=== PATIENT | female | born 1960 | race African-American/Black ===

== ENCOUNTER → 2018-02-05 | Outpatient (CLI) | payer BC ==
[~2018-02-05] MED LIST: ALBU2.5V8 INH; PRED20TA PO; TRAM50TA PO
--- NOTE | 2018-02-06 09:10 | RAD ---
DATE: 02/05/2018 EXAM: DIGITAL SCREEN BILAT W/CAD HISTORY: Routine screening COMPARISON: 02/23/2014 This study was interpreted with the benefit of Computerized Aided Detection (CAD). Breast Density: FATTY The breast parenchyma is primarily fatty replaced. Breast parenchyma level density A. FINDINGS: No new or enlarging breast densities are seen. No suspicious microcalcifications are evident. IMPRESSION: Stable mammograms without evidence of malignancy. BI-RADS CATEGORY: 1 NEGATIVE RECOMMENDED FOLLOW-UP: 12M 12 MONTH FOLLOW-UP PQRS compliance statement: Patient information was entered into a reminder system with a target due date for the next mammogram. Mammography is a sensitive method for finding small breast cancers, but it does not detect them all and is not a substitute for careful clinical examination. A negative mammogram does not negate a clinically suspicious finding and should not result in delay in biopsying a clinically suspicious abnormality. "Our facility is accredited by the [employer] Mammography [employer]."
== END | disposition home or self-care (01) ==
LOC: MAMMO 08:39
PROVIDERS: ATTEND Family Medicine
DX: Z12.31 Encounter for screening mammogram for malignant neoplasm of breast (principal)
CPT/HCPCS: 77067

== ENCOUNTER → 2018-07-19 | Outpatient (CLI) | payer BC ==
[2018-01-19 19:41] VITALS: BP 147/82
--- NOTE | 2018-07-20 18:02 | SLEEP ---
DATE OF STUDY: 07/19/2018 DATE OF STUDY: 07/19/2018 OBJECTIVE: The patient is a 58-year-old female with trouble falling asleep, snoring. Height 5 feet 10 inches, weight 206 pounds, body mass index 29. INTERPRETATION: Sleep architecture is characterized by sleep efficiency of 88% across the 6.9 hours of recording time. There is decreased amount of REM sleep. Sleep onset latency is 4 minutes. Respiratory monitoring shows a total of 50 events for an apnea-hypopnea index of 8.2 events per hour of sleep. Minimum oxygen saturation is 84%. CPAP was not started during the study. No significant periodic limb movements of sleep are seen. No cardiac arrhythmias are observed. IMPRESSION: Abnormal polysomnogram showing obstructive sleep apnea and hypopnea with also evidence of upper airways resistance syndrome. CPAP was not started on this study. RECOMMENDATION: 1. The patient could be returned to the lab for a CPAP titration study. 2. She should avoid sedatives and alcohol and pursue weight loss. Thank you for letting us help with the patient's care. RIANA HINTON MD DR: [email or web address]/jorge JOB#: [id number] / [id number] RORO Venegas MD, W MD
== END | disposition home or self-care (01) ==
LOC: SLPLAB 19:07
PROVIDERS: ATTEND Internal Medicine Critical Care Medicine
DX: G47.33 Obstructive sleep apnea (adult) (pediatric) (principal); G47.8 Other sleep disorders
CPT/HCPCS: 95810

== ENCOUNTER → 2018-08-30 | Outpatient (CLI) | payer BC ==
[2018-01-19 19:41] VITALS: BP 147/82
--- NOTE | 2018-08-31 13:52 | SLEEP ---
DATE OF STUDY: 08/30/2018 SLEEP STUDY ATTENDING PHYSICIAN: Dr. Wilbert Lilly. HISTORY OF PRESENT ILLNESS: The patient is a 58 years old who weighs 199 pounds with a BMI of 28. The patient's Eustace score was 13 suggesting moderate subjective hypersomnia. The patient had previous home sleep study and was found to have ESTRELLA at an AHI of 8.2 per hour. The patient was referred for in-lab titration study. During the night study, the patient spent 410 minutes in bed and slept for 362 minutes with a sleep efficiency of 88%. Sleep latency was 18 minutes with a REM latency of 93 minutes. Overall, sleep architecture showed a normal stage 1 sleep, slightly increased stage 2 sleep, normal slow wave and slightly reduced REM sleep. EKG monitoring revealed normal sinus rhythm. No sustained arrhythmias observed. Average heart rate was 77 beats per minute. No PLMS observed. The patient was started on CPAP at a pressure of 5 cm water and the patient stayed at 5 cm water. The patient's AHI was 1 per hour and oxygen saturation remained above 90%. The patient had supine as well as REM sleep. The patient used medium size nasal pillows. IMPRESSION: 1. Sleep apnea diagnosed previously. 2. No clinically significant PLMS. RECOMMENDATIONS: 1. CPAP at 5 cm water completely eliminated the patient's sleep apnea and should be used on a nightly basis. 2. Follow up in 4-6 weeks to assess compliance with CPAP and to document clinical improvement. 3. Weight loss is advised. 4. Avoid [employer] depressants. 5. Caution regarding driving until symptoms of sleep apnea resolve with the use of CPAP. 6. The patient used medium size nasal cushions. RORO QUIROZ MD DR: THEA/jorge JOB#: [id number] / [id number] Wilbert Joy
== END | disposition home or self-care (01) ==
LOC: RT 19:01
PROVIDERS: ATTEND Internal Medicine Critical Care Medicine
DX: G47.33 Obstructive sleep apnea (adult) (pediatric) (principal)
CPT/HCPCS: 95811

== ENCOUNTER → 2020-12-20 | Outpatient (CLI) | payer BC ==
[2018-01-19 19:41] VITALS: BP 147/82
--- NOTE | 2020-12-20 11:43 | RAD ---
INDICATION : Routine Screening. COMPARISON: January 2018 TECHNIQUE: Standard mammogram screening views of the bilateral breasts were obtained with 3D tomosynt hesis. CAD was utilized. FINDINGS: The breasts are fatty density. No definite suspicious mass. IMPRESSION: BI-RADS Category 1: Negative. Recommend repeat screening examination in one year. The patient was placed into the recall system with a suggested recall date for follow up imaging. Mammography is the most sensitive method for finding small breast cancers, but it does not detect the m all and is not a substitute for careful clinical examination. A negative mammogram does not negate a clinically suspicious finding and should not result in delay in biopsying a clinically suspicious abnormality. Electronically signed by: Michele Gonzalez MD (12/20/2020 11:40 AM) [id number]
== END ==
LOC: MAMMO 09:54
PROVIDERS: ATTEND Family Medicine
DX: Z12.31 Encounter for screening mammogram for malignant neoplasm of breast (principal)
CPT/HCPCS: 77063; 77067

== ENCOUNTER → 2021-07-02 | Outpatient (CLI) | payer BC ==
[2018-01-19 19:41] VITALS: BP 147/82
--- NOTE | 2021-07-03 08:21 | KCIC ---
Three-view right shoulder radiographs 07/02/2021 CLINICAL HISTORY: Right shoulder pain aggravated by movement. AP internal and external rotation and transscapular digital radiographs of the right shoulder were ob tained. No fracture or dislocation of the right shoulder is seen. Mild to moderate degenerative graff es are seen involving the right glenohumeral joint and right AC joint. IMPRESSION: Mild to moderate degenerative changes are seen involving the right shoulder. No acute oss eous abnormality is seen. Electronically signed by: Josh Pearson MD (07/03/2021 8:19 AM) [id number]
== END ==
LOC: KCIC 08:56
PROVIDERS: ATTEND Family Medicine
DX: M19.011 Primary osteoarthritis, right shoulder (principal)
CPT/HCPCS: 73030